=== PATIENT | female | born 2000 | race Caucasian/White ===

== ENCOUNTER → 2021-12-21 12:14 | Outpatient (CLI) | payer OTHER, SELFPAY | PROVIDERS: PCP Family Medicine; Visit Provider Family Medicine | DX: R39.89 Other symptoms and signs involving the genitourinary system (principal) | CPT/HCPCS: 87210 ==

== ENCOUNTER → 2022-02-10 10:02 | Outpatient (CLI) | payer OTHER, SELFPAY ==
--- NOTE | 2022-02-10 10:04 | DI.US.S_ITS ---
PROCEDURE: US OB FOLLOW UP INDICATIONS: growth scan OUTSIDE/PRIOR DATING DATA: Patient is followed by maternal medicine. Established DOUG of 05/08/2022. TECHNIQUE: Real-time scanning was performed of the fetus, with image documentation and biometric measurements. Endovaginal scanning: Not performed COMPARISON: None. FINDINGS: General: A single living intrauterine gestation is present. Presentation: Cephalic. Placenta: Placental position is anterior , without previa. Amniotic fluid index: 13.6 cm, normal range is 5-24 cm. Single deepest vertical pocket is 4.9 cm. heart rate: 144 beats per minute. Maternal cervical canal: 4.1 cm long. Normal lower limit is 2.5 cm. biometrics: Biparietal diameter: 6.83 cm, 27 weeks 3 days Head circumference: 25.23 cm, 27 weeks 3 days Abdominal circumference: 22.73 cm, 27 weeks 1 day Femur length: 5.18 cm, 27 weeks 5 days Clinically estimated gestational age: 27 weeks 4 days Composite gestational age from present scan: 27 weeks 3 days Estimated weight and percentile: 1063 g, 29th percentile Other: Not applicable. IMPRESSION: 1. Single living intrauterine with established DOUG of 05/08/2022. 2. Estimated weight is at the 29th percentile for gestational age. We strive to produce accurate, complete, and clear reports of imaging services. To assist us in improving patient care, this report was composed using standard report templates and voice recognition software. Therefore, it may contain abnormal punctuation, insertions and/or omissions. Occasional wrong-word or sound-alike substitutions may occur. Though we review the report and make efforts to correct it, we do recommend that the report be read carefully in proper context to recognize any text inaccuracies. Dictated by: Michoacano Seth M.D. on 02/10/2022 at 18:53 Approved by: Michoacano Seth M.D. on 02/10/2022 at 18:58
== END ==
PROVIDERS: PCP Family Medicine; Referring Provider Family Medicine; Visit Provider Family Medicine
DX: Z34.90 Encounter for supervision of normal pregnancy, unspecified, unspecified trimester (principal)
CPT/HCPCS: 76816

== ENCOUNTER → 2022-02-15 16:36 | Outpatient (CLI) | payer OTHER, SELFPAY ==
[2022-02-15 17:21] LABS: Appearance Urine UA CLEAR; Bilirubin Urine UA NEGATIVE (NEGATIVE); Color Urine UA YELLOW; Glucose Urine UA NEGATIVE (Negative); Ketones Urine UA NEGATIVE (NEGATIVE); Leukocyte Esterase Urine UA 1+ (NEGATIVE); Nitrite Urine UA NEGATIVE (Negative); Occult Blood Urine UA NEGATIVE (Negative); Protein Urine UA NEGATIVE (Negative); Urobilinogen Urine UA 0.2 E.U./dL (0.2); pH Urine UA 7.5 (4.5-8.0)
[2022-02-15 17:22] LABS: Bacteria Urine None Seen; RBC Urine None Seen (0-5/HPF); Squamous Epithelial Cell Urine 5-10 /HPF (0-5/HPF); WBC Urine 0-1/HPF (0-5/HPF)
== END ==
PROVIDERS: PCP Family Medicine; Visit Provider Family Medicine
DX: R39.89 Other symptoms and signs involving the genitourinary system (principal); R82.90 Unspecified abnormal findings in urine
CPT/HCPCS: 81001; 87086

== ENCOUNTER → 2022-02-22 15:44 | Outpatient (CLI) | payer OTHER, SELFPAY ==
--- NOTE | 2022-02-22 | DI.ECHO.S_ITS ---
[facility] +---------+ : : [address] : : : : [id number] : : : : Phone: [phone]+ Echocardiogram Report + + :Name: SVETA LANGLEY Study Date: 02/22/2022 Height: 69 in : :[facility] ReadingLocation: Weight: 140 lb : : Gender: Female BSA: 1.8 m2 : :: 2000 Age: 21 yrs BP: 125/72 mmHg: :Reason For Study: Congenital malformation of heart : :Ordering Physician: : :Leslie Calhoun Performed By: Gerardo Amor : :Referring: Leslie Calhoun : + + Interpretation Summary The ejection fraction is estimated to be 55-60%. Diastolic parameters suggest probable normal left ventricular diastolic function and normal filling pressures. The right ventricle is grossly normal size. The right ventricular systolic function is normal. The interatrial septum grossly appears intact with no obvious evidence for an atrial septal defect. The prosthetic pulmonic valve is well-seated with normal function. There is mild tricuspid regurgitation. Right ventricular systolic pressure is estimated to be 22 mmHg plus the clinically estimated CVP which cannot be estimated on this exam. Procedure: A two-dimensional transthoracic echocardiogram with color flow and Doppler was performed. The study quality was technically adequate. There is no prior echocardiogram noted for this patient. The patient was in normal sinus rhythm during the exam. Left Ventricle: The left ventricle is normal in size and wall thickness. Left ventricular systolic function is normal. The ejection fraction is estimated to be 55-60%. There are no focal wall motion abnormalities. Diastolic parameters suggest probable normal left ventricular diastolic function and normal filling pressures. Right Ventricle: The right ventricle is grossly normal size. The right ventricular systolic function is normal. Atria: Both atria are normal in size. The interatrial septum grossly appears intact with no obvious evidence for an atrial septal defect. Mitral Valve: The mitral valve is normal in structure and function. There is no mitral regurgitation noted. Aortic Valve: The aortic valve is normal in structure and function. There is no aortic valve stenosis. No aortic regurgitation is present. Tricuspid Valve: The tricuspid valve is normal in structure and function. There is mild tricuspid regurgitation. Right ventricular systolic pressure is estimated to be 22 mmHg plus the clinically estimated CVP which cannot be estimated on this exam. Pulmonic Valve: There is a bioprosthetic pulmonic valve. The prosthetic pulmonic valve appears to open well. The prosthetic pulmonic valve is well- seated. 27 mm Magna Ease tissue valve. Peak velocity across the pulmonic bioprosthesis is 1.7 m/s. The mean pulmonic gradient is 6.1 mmHg. There is a trace or physiologic amount of pulmonic regurgitation. Great Vessels: The aortic root is normal size. The dimensions of the ascending aorta are normal. The inferior vena cava was not well visualized. Pericardium/ Pleura There is no pericardial effusion. There is no pleural effusion. MMode/2D Measurements & Calculations LVIDd: 4.1 cm LVOT diam: 2.0 cm LVIDs: 2.7 cm Ao root diam: 2.4 cm FS: 34.1 % IVSd: 0.90 cm LVPWd: 0.80 cm LV benítez. diameter/BSA (cm/m^2): 2.3 LV sys. diameter/BSA (cm/m^2): 1.5 LA dimension: 3.0 cm RA long axis: 4.6 cm LA A2 area: 12.0 cm2 LA A4 area: 13.6 cm2 LA length (vol): 4.0 cm LA vol: 34.5 ml LA vol index: 19.4 ml/m2 RV Mid_phl: 2.3 cm TAPSE_phl: 1.9 cm Doppler Measurements & Calculations Ao V2 max: 154.0 cm/sec LVOT Max Jayesh: 130.0 cm/sec Ao V2 mean: 108.0 cm/sec LV V1 max P.8 mmHg Ao max P.0 mmHg LV V1 VTI: 27.6 cm Ao mean P.0 mmHg MARIEL(I,D): 2.9 cm2 Ao V2 VTI: 30.0 cm MARIEL(V,D): 2.7 cm2 sev ratio: 0.92 MARIEL indexed to BSA (cm^2/m^2): 1.6 MV E max jayesh: 93.8 cm/sec TR max jayesh: 234.0 cm/sec MV A max jayesh: 57.4 cm/sec TR max P.9 mmHg MV E/A: 1.6 PA V2 max: 173.7 cm/sec Med Peak E' Jayesh: 13.9 cm/sec PA V2 mean: 115.6 cm/sec E/E' med: 6.7 PA mean P.1 mmHg Lat Peak E' Jayesh: 20.1 cm/sec E/E' lat: 4.7 E/e' average: 5.7 MV dec time: 0.18 sec SV(LVOT): 86.7 ml AV VR_phl: 0.84 MARIEL(VTI)/BSA_phl: 1.6 MV P1/2t-pr_phl: 53.0 msec Reading Physician:09:01 AM
== END ==
PROVIDERS: PCP Family Medicine; Referring Provider Internal Medicine Cardiovascular Disease; Visit Provider Internal Medicine Cardiovascular Disease
DX: Q24.9 Congenital malformation of heart, unspecified (principal); I07.1 Rheumatic tricuspid insufficiency; Z95.2 Presence of prosthetic heart valve
CPT/HCPCS: 93306

== ENCOUNTER → 2022-04-12 15:59 | Outpatient (CLI) | payer OTHER, SELFPAY ==
[2022-04-13 15:42] LABS: Strep Grp B PCR NEG for Grp B Strep
== END ==
PROVIDERS: PCP Family Medicine; Visit Provider Family Medicine
DX: Z36.85 Encounter for antenatal screening for Streptococcus B (principal)
CPT/HCPCS: 87653

== ENCOUNTER → 2022-04-16 12:14 | Outpatient (CLI) | payer OTHER, SELFPAY ==
--- NOTE | 2022-04-16 12:15 | DI.US.S_ITS ---
PROCEDURE: US OB LIMITED INDICATIONS: size-date discrepancy OUTSIDE/PRIOR DATING DATA: Patient is followed by maternal medicine. Established DOUG of 05/08/2022. TECHNIQUE: Real-time scanning was performed of the fetus, with image documentation and biometric measurements. Endovaginal scanning: Not performed. COMPARISON: [facility], , OB FOLLOW UP, 02/10/2022, 10:13. FINDINGS: General: A single living intrauterine gestation is present. Presentation: Cephalic Placenta: Placental position is anterior, without previa. Amniotic fluid index: 7.3 cm, normal range is 5-24 cm. Single deepest vertical pocket is 2.8 cm. heart rate: 141 beats per minute. Maternal cervical canal: Not well visualized. biometrics: Biparietal diameter: 8.5 cm, 34 weeks 3 days Head circumference: 31.6 cm, 35 weeks 3 days Abdominal circumference: 29.9 cm, 33 weeks 6 days Femur length: 7.0 cm, 35 weeks 5 days Clinically estimated gestational age: 36 weeks 6 days Composite gestational age from present scan: 34 weeks 6 days Estimated weight and percentile: 2477 grams, 9th percentile Umbilical artery systolic/diastolic ratio: 2.9 placental insertion, 2.8 mid, 2.6 insertion IMPRESSION: 1. Single live intrauterine is seen with interval growth. Estimated weight is 2477 grams, 9th percentile for clinical gestational age. 2. Amniotic fluid index is within normal limits at 7.3 cm. 3. Umbilical artery Doppler demonstrates preserved diastolic flow. We strive to produce accurate, complete, and clear reports of imaging services. To assist us in improving patient care, this report was composed using standard report templates and voice recognition software. Therefore, it may contain abnormal punctuation, insertions and/or omissions. Occasional wrong-word or sound-alike substitutions may occur. Though we review the report and make efforts to correct it, we do recommend that the report be read carefully in proper context to recognize any text inaccuracies. Dictated by: Michoacano Curtis M.D. on 04/16/2022 at 19:32 Approved by: Michoacano Curtis M.D. on 04/16/2022 at 19:38
== END ==
PROVIDERS: PCP Family Medicine; Referring Provider Family Medicine; Visit Provider Family Medicine
DX: O26.843 Uterine size-date discrepancy, third trimester (principal)
CPT/HCPCS: 76815; 76820

== ENCOUNTER 2022-04-22 12:12 | Outpatient (CLI) | payer OTHER, SELFPAY ==
--- NOTE | 2022-04-22 12:14 | DI.US.S_ITS ---
PROCEDURE: US OB LIMITED INDICATIONS: KIKE TECHNIQUE: Real-time scanning was performed of the fetus, with image documentation. COMPARISON: [facility], , OB LIMITED, 04/16/2022, 12:35. FINDINGS: A single living intrauterine gestation is present. Presentation: Cephalic. Placenta: Placental position is anterior, without previa. Amniotic fluid index: 6.5 cm, normal range is 5-24 cm. Single deepest vertical pocket is 2.9 cm. heart rate: 131 beats per minute. Maternal cervical canal: Not visualized IMPRESSION: 1. Oligohydramnios KIKE measuring 6.5 cm. 2. Single live intrauterine . Dictated by: Amirk Velarde M.D. on 04/22/2022 at 14:25 Approved by: Amrik Velarde M.D. on 04/22/2022 at 14:26
--- NOTE | 2022-04-22 13:14 | PM.OBTRLD ---
Visit Information Visit Information Date of evaluation: 04/22/22 Primary OB Provider: Chiara Stark On-call OB Provider: Nimo Teresa Reason for Evaluation: Yes non-stress test non-stress test reason: other (SGA) Vital Signs Vital Signs: Temperature 36.6? blood pressure 113/78 heart rate 93 PFSH Medical History Anxiety (~2014) Congenital heart defect Depression (~2014) Eczema Endometriosis (~2014) Hypothyroid Ovarian cyst (~2014) UTI (urinary tract infection) Surgical History Anesthesia History of heart surgery Pulmonary valve replaced (~2017) Family History Grandmother Lupus Cancer Father Hypertension Heart problem Grandfather Lung cancer Social History marital status: number of children: 1 household members: spouse and children lives independently: Yes housing: apartment pets and animals: Yes (cats aware toxo) education level: college occupational status: unemployed current occupational exposures/hazards: No special audrey needs: No seatbelt use: always water heater temp set < 120 deg: Yes (will check) working smoke detector in home: Yes fire extinguisher in home: No carbon monox detector in home: Yes firearms in home: Yes firearms unloaded and locked: Yes do you feel safe at home: Yes Smoking Status: Former smoker (marijuana) second hand exposure: No alcohol intake: former substance use type: former substance user and marijuana during the past year weight has: remained stable well-balanced diet: daily or most days daily servings fruits/ve-1 caffeine: Yes (200mg limit) Type(s) of exercise: irregular exercise Evaluation Evaluation Baseline heart rate: 130 Variability: Moderate (11-25) monitor accelerations: Present Monitor Decelerations: Variable (One very brief variable, otherwise no decelerations) Category of Tracing: Reactive Diagnosis, Plan/Disposition Final Diagnosis (1) 37 weeks gestation of : Status: Acute Plan/Disposition Plan: 22-year-old at 37 weeks and 5 days here for NST and KIKE due to estimated weight at the ninth percentile. NST reactive. KIKE 6.5. Follow-up for weekly testing and in clinic as scheduled or return sooner if needed. OB Disposition: home
== END 2022-04-22 13:43 | disposition home or self-care (01) ==
LOC: OB 05-05 12:14
PROVIDERS: PCP Family Medicine; Referring Provider Family Medicine; Visit Provider Family Medicine
DX: O36.5930 Maternal care for other known or suspected poor fetal growth, third trimester, not applicable or unspecified (principal); Z3A.37 37 weeks gestation of pregnancy
CPT/HCPCS: 59025; 76815; G0378; G0379

== ENCOUNTER 2022-04-28 03:40 | Inpatient (IN) | payer OTHER, SELFPAY ==
[2022-04-28] MEDS: LACTATED RINGERS 1,000 ML 100 ML IV (04:40)
[2022-04-28] MEDS: PENICILLIN G POTASSIUM 5,000,000 UNIT in DEXTROSE 5% IN WATER 250 ML 250 UNIT IV (04:41)
[2022-04-28 04:54] LABS: Add Manual Diff / Slide Review NO; Basophils Absolute Auto 100 /uL (0-100); Basophils Percent Auto 0.5 % (0-2); Eosinophils Absolute Auto 100 /uL (0-450); Eosinophils Percent Auto 0.9 % (2-4); Hematocrit 36.5 % (36-46); Hemoglobin 12.7 g/dL (12.0-16.0); Lymphocytes Absolute Auto 2800 /uL (1100-4500); Lymphocytes Percent Auto 20.4 % (25-40); Mean Corpuscular HGB Conc 34.8 % (30-36); Mean Corpuscular Hemoglobin 32.1 PG (26-34); Mean Corpuscular Volume 92.3 fL (80-100); Monocytes Absolute Auto 500 /uL (0-900); Monocytes Percent Auto 3.7 % (3-14); Neutrophils Absolute Auto 10300 /uL (1500-7000); Neutrophils Percent Auto 74.5 % (50-75); Platelet Count 233 X10^3/uL (150-400); Red Blood Cell Count 3.96 X10^6/uL (4.0-5.2); Red Cell Distribution Width 12.9 % (11.6-14.8); White Blood Cell Count 13.9 X10^3/uL (4.5-11.0)
[2022-04-28 05:08] LABS: COVID19 -Nasal RAPID Negative (Negative)
[2022-04-28 05:45] VITALS: BP 120/67
[2022-04-28] MEDS: OXYTOCIN PREMIX 30 UNIT/500 ML PLAST..BAG 200 UNIT IV (09:23)
--- NOTE | 2022-04-28 09:47 | PM.OBHP.IH.1 ---
OB HPI Date/Time Date of admission: 04/28/22 Date Patient Seen: 04/28/22 Time Patient Seen: 07:30 History of Present Condition Chief complaint: Labor & Delivery DOUG Calculator Estimated Delivery Date Method Current WG Current Estimate 05/08/22 Manual 38w 4d Final DOUG - JULIEN Other Estimates 05/08/22 LMP (Certain) 38w 4d 05/12/22 Ultrasound #1 38w 0d Estimated Gestational Age (weeks): 38w4d : 2 Para: 1 Narrative: 22yo at 38w4d who presented with regular painful contractions. Pt reports contractions starting around 9:30pm last night. She denies any LOF or vaginal bleeding and is feeling her baby move regularly. The pts was complicated by maternal history of pulmonic valve replacement, cleared by cardiology for at this facility with normal echo. Pt also with hypothyroidism stable on Levothyroxine. Pts baby diagnosed as SGA at 36wks, with reassuring testing. 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 Date GA/Weeks Labor Lgth Wt Sex Route Outcome Anesthesia Place Delv Breastfeed Preg Comp Name 08/08/20 40 44 6 lb 12 oz Male vaginal live - full term epidural [place] 14 mo still feeding none Reuben Delivery Date: 08/08/20 Last Updated by: Deidre Vides RJuan Daniel High risk due to heart defect, Group B Positive Evaluation Evaluation Baseline heart rate: 130 Variability: Moderate (11-25) monitor accelerations: Present Monitor Decelerations: Absent Contraction Frequency (minutes): 3 Dilation (cm): 10 Effacement (%): 100 station: +2 PFSH Medical History Anxiety (~2014) Congenital heart defect Depression (~2014) Eczema Endometriosis (~2014) Hypothyroid Ovarian cyst (~2014) UTI (urinary tract infection) Surgical History Anesthesia History of heart surgery Pulmonary valve replaced (~2017) Family History Grandmother Lupus Cancer Father Hypertension Heart problem Grandfather Lung cancer Social History marital status: number of children: 1 household members: spouse and children lives independently: Yes housing: apartment pets and animals: Yes (cats aware toxo) education level: college occupational status: unemployed current occupational exposures/hazards: No special audrey needs: No seatbelt use: always water heater temp set < 120 deg: Yes (will check) working smoke detector in home: Yes fire extinguisher in home: No carbon monox detector in home: Yes firearms in home: Yes firearms unloaded and locked: Yes do you feel safe at home: Yes Smoking Status: Former smoker second hand exposure: No alcohol intake: former substance use type: former substance user and marijuana during the past year weight has: remained stable well-balanced diet: daily or most days daily servings fruits/ve-1 caffeine: Yes (200mg limit) Type(s) of exercise: irregular exercise Meds Home Medications and Allergies Home Medications Medication Instructions Recorded Confirmed Type aspirin 81 mg tablet,delayed 81 mg PO DAILY 10/15/21 04/28/22 History release prenat.vits,daisy,cou-zapa-cgtde 1 tab PO DAILY 10/15/21 04/28/22 History levothyroxine 75 mcg capsule 75 mcg PO DAILY #30 caps 01/08/22 04/28/22 Rx Allergies Allergy/AdvReac Type Severity Reaction Status Date / Time metronidazole [From Flagyl] Allergy Mild Rash Verified 04/20/22 14:09 OB Exam Narrative Exam Narrative: Gen: NAD, sitting comfortably in bed, appears well CV: RRR, no murmurs Resp: clear to auscultation bilaterally Abd: soft, nontender, gravid Ext: no edema Objective Labs Result Diagrams: 04/28/22 04:30 Labs: Laboratory Results - last 24 hr 04/28/22 04/28/22 04/28/22 04:30 04:30 04:30 WBC 13.9 H RBC 3.96 L Hgb 12.7 Hct 36.5 MCV 92.3 MCH 32.1 MCHC 34.8 RDW 12.9 Plt Count 233 Neut % (Auto) 74.5 Lymph % (Auto) 20.4 L Wilbarger % (Auto) 3.7 Eos % (Auto) 0.9 L Baso % (Auto) 0.5 Neut # (Auto) 37269 H Lymph # (Auto) 2800 [place]barger # (Auto) 500 Eos # (Auto) 100 Baso # (Auto) 100 SARS-CoV-2 (PCR) Negative Blood Type B Positive Antibody Screen Negative Assessment and Plan Assessment and Plan Assessment and Plan narrative: 22yo at 38w4d who presented in active labor. complicated by SGA diagnosed at 36wks with reassuring testing. Pt with history of pulmonary valve replacement due to congenital stenosis, cleared for delivery at this facility, and hypothyroidism. GBS negative, Rh positive. - Expectant management, anticipate - FHT reassuring - GBS negative, however pt would like antibiotic prophylaxis due to being positive with her last ; penicillin initiated - Epidural in place for pain control
[2022-04-28] MEDS: ASPIRIN EC 81 MG TABLET PO ×2 (11:09→11:23)
[2022-04-28] MEDS: IBUPROFEN 600 MG TABLET PO ×2 (11:10→17:55)
[2022-04-28] MEDS: LANOLIN OINT 7 GM 1 APPLIC TOP (11:10)
--- NOTE | 2022-04-28 13:01 | P.PCNOB_ITS ---
Labor & Delivery Delivery date: 04/28/22 Intrapartal Events: None Cervical ripening method: none Induction method: none Delivery augmentation: rupture of membranes Delivery monitor: external FHT and external uterine Route of delivery: Episiotomy description: None L&D Laceration Description: None Estimated blood loss (mL): 200 Anesthesia Type: Epidural Complications: None Narrative: PROCEDURE: at 38w4d presented in active labor and was admitted to Labor and Delivery. The patient progressed through the 1st stage over 6 hours. Pain was controlled with an epidural. She received one dose of penicillin prior to delivery. After the pt was complete, AROM was performed with clear fluid present. The patient progressed through the 2nd stage over 1.5 hours and delivered a viable male with APGARs 9/9 at 9:13am via without complications. The cord was cut and clamped after it stopped pulsating. The perineum and vagina were inspected with no lacerations. PREPROCEDURE DIAGNOSIS: Intrauterine at 38w4d Hx of congenital pulmonary stenosis s/p valve replacement Hypothyroidism SGA GBS negative RH positive POSTPROCEDURE DIAGNOSIS: Intrauterine at 38w4d, delivered Same as preprocedure [place] Baby 1: Infant gender: Male Presentation: vertex Position: Right Occiput Anterior Placenta delivery description: Spontaneous Cord Vessel Description: 3 Vessels score (1 min): 9 score (5 min): 9 weight: 5 lb 14.005 oz Plan for aftercare: Routine care
[2022-04-28] MEDS: ACETAMINOPHEN 325 MG TABLET 650 MG PO (17:54)
[2022-04-29] MEDS: IBUPROFEN 600 MG TABLET PO ×2 (00:46→06:55)
[2022-04-29] MEDS: ACETAMINOPHEN 325 MG TABLET 650 MG PO (00:47)
--- NOTE | 2022-04-29 05:30 | PM.OBDS.1 ---
Discharge Providers Provider Date of admission: 04/28/22 03:40 Discharge Date: 04/29/22 Primary care physician: Chiara Stark MD Consults: 04/29/22 09:41 Consult to Rn Gastroenterology Routine Comment: Discharge provider: Chiara Stark MD Summary Hospital Course Diagnoses: Intrauterine at 38w4d Hx of congenital pulmonary stenosis s/p valve replacement Hypothyroidism SGA GBS negative RH positive Hospital Course: The pt presented in active labor. She had an epidural for pain control. She progressed to complete and AROM was performed with production of clear fluid. She had an of a viable baby boy without any complications. There were on lacerations. , there were no complications. At the time of discharge she was voiding, ambulating, and passing flatus without difficulty. Her lochia was decreasing appropriately. She was with good latch. Her pain was well controlled. She will f/u in 6 weeks for check. Peripartum Data Infant Delivery Method: Natural Vaginal Laceration Description: None Episiotomy description: None Procedures: Spontaneous vaginal delivery complications: none 1: Gender: Male Disposition of : home Discharge Diagnosis (1) Hx of pulmonic valve replacement: Status: Acute (2) Hypothyroid: Status: Acute Problem Details: Not currently treated (3) Spontaneous vaginal delivery: Status: Acute Time Spent with Patient Time attestation: Total time spent providing and/or coordinating discharge services: Objective Labs Result Diagrams: 04/28/22 04:30 Labs: Laboratory Results - last 24 hr 04/28/22 04:30 Blood Type B Positive Antibody Screen Negative Exam Narrative Exam Narrative: Gen: NAD, sitting comfortably in bed, appears well CV: RRR, no murmurs Resp: clear to auscultation bilaterally Abd: soft, appropriately tender, fundus firm and below the umbilicus, nondistended Ext: no edema Discharge Plan Discharge Plan Patient Disposition: Home Discharge orders & Medications Prescriptions: New acetaminophen 325 mg Tablet 650 mg PO Q6HR PRN (Reason: Pain, Mild (1-3)) Qty: 30 0RF docusate sodium 100 mg Capsule 100 mg PO DAILY Qty: 30 0RF ibuprofen 600 mg Tablet 600 mg PO Q6HR PRN (Reason: Pain, Mild (1-3)) Qty: 30 0RF Continued levothyroxine 75 mcg capsule 75 mcg PO DAILY Qty: 30 3RF prenat.vits,daisy,yjd-xynz-cykoc Tablet 1 tab PO DAILY aspirin 81 mg tablet,delayed release (DR/EC) 81 mg PO DAILY Follow up/Referrals: Chiara Stark MD [Primary Care Provider] - 6 Weeks (Jun 09 at 10:00) Diet/Activity/Treatments Diet: Diet as Tolerated and Regular Skin/Wound/Dressing Care Report to your healthcare provider any signs of infection, such as:: chills, fever, increased pain and unusual drainage Visit Report/Discharge Packet Instructions: DI for Labor and Delivery, Vaginal Stand Alone Forms: Discharge: Care Visit Report Forms: Patient Portal/API, Stroke Signs & Symptoms Discharge Data Primary Care Provider: Chiara Stark Discharges patient from system. Discharge Date/Time: 04/29/22 09:50
[2022-04-29] MEDS: LEVOTHYROXINE 75 MCG TABLET PO (06:13)
[2022-04-29] MEDS: DOCUSATE 100 MG CAPSULE PO (08:53)
[2022-04-29] MEDS: ASPIRIN EC 81 MG TABLET PO (08:53)
[2022-04-29] MEDS: PRENATAL VIT,CALC/IRON/FOLIC 1 TABLET 1 TAB PO (08:53)
== END 2022-04-29 09:50 | disposition home or self-care (01) | DRG 807 ==
PROVIDERS: Admitting Provider Family Medicine; PCP Family Medicine; Referring Provider Family Medicine; Visit Provider Family Medicine
DX: O99.284 Endocrine, nutritional and metabolic diseases complicating childbirth (principal); Z37.0 Single live birth; E03.9 Hypothyroidism, unspecified; Z3A.38 38 weeks gestation of pregnancy; O36.5930 Maternal care for other known or suspected poor fetal growth, third trimester, not applicable or unspecified; Z95.2 Presence of prosthetic heart valve; Z67.20 Type B blood, Rh positive; Z20.822 Contact with and (suspected) exposure to COVID-19
CPT/HCPCS: 36415; 59050; 59400; 85025; 86850; 86900; 86901; 87635; C9803; G0379; J2540; J2590

== ENCOUNTER → 2022-07-11 13:20 | Outpatient (CLI) | payer OTHER, SELFPAY | PROVIDERS: PCP Family Medicine; Visit Provider Student in an Organized Health Care Education/Training Program | DX: R30.0 Dysuria (principal) | CPT/HCPCS: 87086 ==

== ENCOUNTER → 2024-04-23 11:44 | Outpatient (CLI) | payer OTHER, SELFPAY | PROVIDERS: PCP Family Medicine; Visit Provider Family Medicine | DX: Z11.3 Encounter for screening for infections with a predominantly sexual mode of transmission (principal) | CPT/HCPCS: 87210 ==

== ENCOUNTER → 2024-04-23 11:59 | Outpatient (CLI) | payer OTHER, SELFPAY ==
[2024-04-23 13:50] LABS: Add Manual Diff / Slide Review NO; Basophils Absolute Auto 0 /uL (0-100); Basophils Percent Auto 0.5 % (0-2); Eosinophils Absolute Auto 0 /uL (0-450); Eosinophils Percent Auto 0.5 % (2-4); Hematocrit 39.2 % (36-46); Hemoglobin 13.6 g/dL (12.0-16.0); Lymphocytes Absolute Auto 2500 /uL (1100-4500); Lymphocytes Percent Auto 29.8 % (25-40); Mean Corpuscular HGB Conc 34.7 % (30-36); Mean Corpuscular Hemoglobin 31.3 PG (26-34); Monocytes Absolute Auto 500 /uL (0-900); Monocytes Percent Auto 6.4 % (3-14); Neutrophils Absolute Auto 5200 /uL (1500-7000); Neutrophils Percent Auto 62.8 % (50-75); Platelet Count 239 X10^3/uL (150-400); Red Blood Cell Count 4.35 X10^6/uL (4.0-5.2); Red Cell Distribution Width 13.2 % (11.6-14.8); White Blood Cell Count 8.3 X10^3/uL (4.5-11.0)
[2024-04-23 14:19] LABS: Alanine Aminotransferase 14 IU/L (<35); Albumin 4.5 g/dL (3.5-5.0); Albumin Globulin Ratio 1.7 (1.0-2.8); Alkaline Phosphatase 67 U/L (38-126); Aspartate Aminotransferase 22 IU/L (14-36); Bilirubin Total 0.4 mg/dL (0.2-1.3); Blood Urea Nitrogen 14 mg/dL (7-17); Calcium 9.3 mg/dL (8.4-10.2); Carbon Dioxide 25 mmol/L (22-32); Chloride 102 mmol/L (98-107); Estimated Glomerular Filt Rate > 60 mL/min (>60); Globulin 2.7 g/dL (1.7-4.1); Glucose 101 mg/dL (70-100); HEMOLYSIS < 15 (0-50); Potassium 3.6 mmol/L (3.4-5.1); Sodium 138 mmol/L (137-145); Total Protein 7.2 g/dL (6.3-8.2)
[2024-04-23 14:53] LABS: Thyroid Stimulating Hormone 2.02 uIU/mL (0.47-4.68)
[2024-04-23 14:59] LABS: Vitamin D 25 Hydroxy (D3) 42.6 ng/mL (30.0-100.0)
[2024-04-23 15:28] LABS: Folate 16.3 ng/mL (2.76-20.0)
[2024-04-23 16:26] LABS: HIV 1 & 2 Ab/Ag 4th Gen Combo NEGATIVE (NEGATIVE)
== END ==
PROVIDERS: PCP Family Medicine; Referring Provider Family Medicine; Visit Provider Family Medicine
DX: F50.9 Eating disorder, unspecified (principal); F32.A Depression, unspecified; A64 Unspecified sexually transmitted disease
CPT/HCPCS: 36415; 80053; 82306; 82746; 84443; 85025; 86592; 87210; 87389

== ENCOUNTER → 2025-03-11 09:00 | Outpatient (CLI) | payer OTHER, SELFPAY ==
--- NOTE | 2025-03-11 09:01 | DI.US.S_ITS ---
US breast BI limited: 03/11/2025. BI-RADS: 2 CLINICAL: 24-year old female for bilateral diagnostic breast ultrasound. Tyrer- Cuzick lifetime risk of 10.2%. The patient presents for evaluation of bilateral yellowish, clear, and white nipple discharge for the past 4 months. Patient completed in September 2023. Patient also reports generalized lumpiness and mild tenderness in both breasts. PRIOR EXAMS No prior examinations available. ULTRASOUND TECHNIQUE: Real-time toribio scale and color doppler imaging of the area of clinical interest was performed with image documentation. TARGETED Bilateral Breast Ultrasound: Real-time ultrasound exam was performed focused to area of clinical and/or imaging concern. ULTRASOUND FINDINGS Right: Central, Retroareolar: There is no suspicious sonographic correlate for the symptom of nipple discharge in the retroareolar breast. There are multiple dilated ducts. Ducts contain echogenic material. Right: Upper Outer at 10:00: No suspicious sonographic finding present. The 10 o'clock axis was scanned and environmental marketing representative cines were taken. There is no sonographic correlate for the patient's generalized lumpiness and pain. Left: Upper at 12:00, Retroareolar, measuring 0.5 x 0.2 x 0.6 cm: There is a simple anechoic cyst. This is an incidental finding. Left: Central, Retroareolar: There is no suspicious sonographic correlate for the symptom of nipple discharge in the retroareolar breast. There are multiple dilated ducts. Ducts contain echogenic material. Left: Upper Outer at 2:00: No suspicious sonographic finding present. The 2 o'clock axis was scanned, and environmental marketing representative cines were taken. There is no sonographic correlate for the patient's generalized lumpiness and pain. IMPRESSION: * No evidence of malignancy with benign findings. RECOMMENDATIONS Bilateral * Clinical follow-up is recommended, and further management of palpable abnormalities or other focal signs or symptoms should be based on the results of clinical evaluation. If palpable abnormality or other concerning symptom persists or progresses, further clinical evaluation should be considered. * Nipple discharge that is non-spontaneous and bilateral or from multiple ducts in the same breast is typically benign or physiologic. Clinical follow-up is recommended, and further management of nipple discharge should be based on the results of clinical evaluation. If nipple discharge persists and/or increases in clinical suspicion, further clinical evaluation should be considered. * Annual screening mammography beginning at age 40. COMMENTS: Findings and recommendations were conveyed to the patient during today's evaluation. OVERALL ASSESSMENT CATEGORY BI-RADS-2: Benign. ELECTRONICALLY SIGNED: Shavon Graham M.D. on 03/11/2025 at 12:09:56 PM PT Interpreting Station ID: [id number]
== END ==
LOC: US 09:00
PROVIDERS: PCP Family Medicine; Referring Provider Family Medicine; Visit Provider Family Medicine
DX: N63.10 Unspecified lump in the right breast, unspecified quadrant (principal); N60.02 Solitary cyst of left breast
CPT/HCPCS: 76642